=== PATIENT | female | born 1995 | race Caucasian/White ===

== ENCOUNTER 2017-01-28 13:16 | Outpatient (CLI) | payer BC | END 2017-01-28 16:15 | disposition home or self-care (01) | LOC: MW.OBCHECK 13:16 → MW.OB 13:17 → MW.OBCHECK 16:15 | PROVIDERS: ATTEND Obstetrics & Gynecology | DX: O47.1 False labor at or after 37 completed weeks of gestation (principal); Z3A.39 39 weeks gestation of pregnancy | CPT/HCPCS: 59025 ==

== ENCOUNTER 2017-01-28 19:19 | Inpatient (IN) | payer BC ==
[2017-01-28] MEDS ORDERED: Carboprost Tromethamine 250 MCG/1 ML Amp IM PRN (19:58)
[2017-01-28] MEDS ORDERED: Nalbuphine 10 MG/1 ML Vial IVPUSH PRN (19:58)
[2017-01-28] MEDS ORDERED: Misoprostol 200 MCG Tab PO PRN (19:58)
[2017-01-28] MEDS ORDERED: Methylergonovine 0.2 MG/1 ML Amp IM PRN (19:58)
[2017-01-28] MEDS ORDERED: Sodium Chloride 0.9% 2.5 ML Syringe FLUSH PRN (19:58)
[2017-01-28] MEDS ORDERED: Water For Irrigation,Sterile 1,000 ML Container IRR PRN (19:58)
[2017-01-28] MEDS ORDERED: Sodium Chloride 0.9% 10 ML Syringe FLUSH PRN (19:58)
[2017-01-28] MEDS ORDERED: Lidocaine 1% 50 ML MDV INJECT PRN (19:58)
[2017-01-28] MEDS ORDERED: Oxytocin/Lactated Ringers 30 UNIT/500 ML BAG IV SCH (20:00)
[2017-01-28] MEDS: Lactated Ringers 1,000 ML IV SCH ×3 (20:20→22:40)
[2017-01-28] MEDS: Butorphanol 1 MG/ML SDV IVPUSH PRN ×2 (20:25→21:56)
[2017-01-28] MEDS ORDERED: fentaNYL 100 MCG/2 ML SDV ONE (22:17)
[2017-01-28] MEDS ORDERED: Ropivacaine HCl/PF 100 ML ONE (22:18)
--- NOTE | 2017-01-28 22:54 | PCM.PREANE ---
Preanesthetic Assessment - Anesthesia/Transfusion/Family Hx Anesthesia History: Prior Anesthesia Without Reaction (Inguinal hernia repair as a baby & wisdom teeth) Family History of Anesthesia Reaction: No Intubation History: Unknown - Review of Systems General: No Symptoms Pulmonary: No Symptoms Cardiovascular: No Symptoms Gastrointestinal: No symptoms Neurological: No Symptoms Other: Reports: None - Physical Assessment NPO Status Date: 01/28/17 NPO Status Time: 22:53 (sips/chips) Blood Pressure: 124/82 Height: 5 ft 9.75 in Weight: 170 lb ASA Class: 1 Mental Status: Alert & Oriented x3 Airway Class: Mallampati = 2 Dentition: Reports: Normal Dentition Thyro-Mental Finger Breadths: 3 Mouth Opening Finger Breadths: 3 ROM/Head Extension: Full Lungs: Clear to auscultation, Normal respiratory effort Cardiovascular: Regular Rate, Regular Rhythm - Lab Values: Laboratory Last Values WBC 13.27 K/uL (4.0-11.0) H 01/28/17 20: RBC 4.59 M/uL (4.30-5.90) 01/28/17 20:17 Hgb 14.5 g/dL (12.0-16.0) 01/28/17 20:17 Hct 41.5 % (36.0-46.0) 01/28/17 20:17 MCV 90.4 fL (80.0-98.0) 01/28/17 20:17 MCH 31.6 pg (27.0-32.0) 01/28/17 20:17 MCHC 34.9 g/dL (31.0-37.0) 01/28/17 20:17 RDW Std Deviation 45.0 fl (28.0-62.0) 01/28/17 20:17 RDW Coeff of [place] 14 % (11.0-15.0) 01/28/17 20:17 Plt Count 231 K/uL (150-400) 01/28/17 20:17 MPV 10.20 fL (7.40-12.00) 01/28/17 20:17 Nucleated RBC % 0.0 /100WBC 01/28/17 20:17 Nucleated RBCs # 0 K/uL 01/28/17 20:17 Blood Type AB POSITIVE 01/28/17 20:45 Antibody Screen NEGATIVE 01/28/17 20:45 Cold Antibody Screen POSITIVE 01/28/17 20:45 - Allergies Allergies/Adverse Reactions: Allergies Allergy/AdvReac Type Severity Reaction Status Date / Time No Known Allergies Allergy Verified 01/06/14 13:04 - Blood Blood Available: No Product(s) Available: None - Anesthesia Plan Free Text/Narrative:: Labor Epidural - Acknowledgements Anesthesia Type Planned: Epidural Pt an Appropriate Candidate for the Planned Anesthesia: Yes Alternatives and Risks of Anesthesia Discussed w Pt/Guardian: Yes Pt/Guardian Understands and Agrees with Anesthesia Plan: Yes PreAnesthesia Questionnaire - Past Surgical History HEENT Surgical History: Reports: Oral Surgery, Other (See Below) Other HEENT Surgeries/Procedures: [place] tooth extraction GI Surgical History: Reports: Hernia, Inguinal, Other (See Below) Other GI Surgeries/Procedures: Left inguinal hernia repair - SUBSTANCE USE Smoking Status *Q: Never Smoker Days Per Week of Alcohol Use: 0 Recreational Drug Use History: No - HOME MEDS Home Medications: Home Meds . [No Known Home Meds] 01/06/14 [History] - CURRENT (IN HOUSE) MEDS Current Meds: Current Medications Butorphanol Tartrate (Stadol) 1 mg IVPUSH Q1H PRN PRN Reason: Pain Last Admin: 01/28/17 21:56 Dose: 1 mg Carboprost Tromethamine (Hemabate Ds) 250 mcg IM ASDIRECTED PRN PRN Reason: Post Hemorrhage Lactated Ringer's (Ringers, Lactated) 1,000 mls @ 150 mls/hr IV ASDIRECTED VIVIENNE Last Admin: 01/28/17 22:40 Dose: 150 mls/hr Lidocaine HCl (Xylocaine 1%) 50 ml INJECT .ONCE PRN PRN Reason: Laceration repair Methylergonovine Maleate (Methergine) 0.2 mg IM ASDIRECTED PRN PRN Reason: Post Hemorrhage Misoprostol (Cytotec) 200 mcg PO .ONCE PRN PRN Reason: Post Hemorrhage Sodium Chloride (Saline Flush) 10 ml FLUSH ASDIRECTED PRN PRN Reason: Keep Vein Open Sodium Chloride (Saline Flush) 2.5 ml FLUSH ASDIRECTED PRN PRN Reason: Keep Vein Open Sterile Water (Sterile Water For Irrigation) 1,000 ml IRR ASDIRECTED PRN PRN Reason: delivery Discontinued Medications Fentanyl (Sublimaze) Confirm Administered Dose 100 mcg .ROUTE .STK-MED ONE Stop: 01/28/17 22:18 Oxytocin/Lactated Ringer's (Pitocin In Lr 30 Units/500 Ml) 30 unit in 500 mls @ 999 mls/hr IV TITRATE VIVIENNE; 999 MUNITS/MIN PRN Reason: Protocol Stop: 01/28/17 20:31 Ropivacaine (Naropin 0.2%) Confirm Administered Dose 100 mls @ as directed .ROUTE .STK-MED ONE Stop: 01/28/17 22:19 Nalbuphine HCl (Nubain) 10 mg IVPUSH Q1H PRN PRN Reason: Pain (severe 7-10) Stop: 01/28/17 21:59
[2017-01-29] MEDS ORDERED: Oxytocin/Lactated Ringers 30 UNIT/500 ML BAG ONE (01:33)
[2017-01-29] MEDS ORDERED: Oxytocin/Lactated Ringers 30 UNIT/500 ML BAG IV SCH (02:11)
[2017-01-29] MEDS ORDERED: Bisacodyl 10 MG Supp RECTAL PRN (04:07)
[2017-01-29] MEDS ORDERED: Witch Hazel Medicated Pads 40/Jar TOP PRN (04:07)
[2017-01-29] MEDS ORDERED: oxyCODONE 5 MG Tab PO PRN (04:07)
[2017-01-29] MEDS ORDERED: Acetaminophen 500 MG Tab PO PRN (04:07)
[2017-01-29] MEDS ORDERED: Benzocaine/Menthol 20%-0.5% Spray 78 GM Cannister TOP PRN (04:07)
[2017-01-29] MEDS ORDERED: Lanolin 100% Cream 7 GM Tube TOP PRN (04:07)
[2017-01-29] MEDS ORDERED: Ibuprofen 400 MG Tab PO PRN (04:07)
--- NOTE | 2017-01-29 04:45 | OR ---
SURGEON: Rochelle Thompson M.D. DATE OF PROCEDURE: 01/29/2017 PREOPERATIVE DIAGNOSES: 1. 39 and 3 weeks intrauterine . 2. Active labor. POSTOPERATIVE DIAGNOSES: 1. 39 and 3 weeks intrauterine . 2. Active labor. PROCEDURE: 1. Spontaneous vaginal delivery. 2. Second-degree midline laceration repair. ESTIMATED BLOOD LOSS: 300 mL. ANESTHESIA: Epidural. COMPLICATIONS: None. FINDINGS: Viable female, Apgars 8 at 1 minute, 9 at 5 minutes. Weight of 2910 g. Spontaneous delivery, intact placenta, 3-vessel cord. DISPOSITION: Infant to nursery, mom in LDRP. PROCEDURE DETAILS: Carlos is a 21-year-old, G1, P0, at 39 and 2 weeks gestational age upon her arrival on the evening of 01/28/2017. She was having regular contractions throughout the day and then at approximately 7:00 p.m. had spontaneous rupture of membranes with clear fluid. On exam, she was found to be 1 cm, 70% effaced, -3 station. Therefore, she was admitted. Routine labs were drawn. She is group B beta strep negative. heart tones in the 120s to 130s with variability. The patient became increasingly uncomfortable with ailyn every 2 to 3 minutes and shortly before 10:00 p.m. was found to be 3 cm dilated, 80% effaced, -2 station. She was requesting regional anesthesia in the form of epidural. Within the next 30 minutes, she had already progressed to 4 cm, 90% effaced, and -1 station. She underwent regional anesthesia in the form of epidural, became much more comfortable and continued to progress nicely to complete 100% effaced, +2 station with heart tones in the 130s to 140s with variability. Shortly after 1:00 a.m., she was found to be complete. Therefore, began pushing efforts. She pushed readily for approximately an hour and 45 minutes to a +4 station. I was called for delivery. Upon my arrival, the patient was placed in modified dorsal lithotomy position. She was prepped and draped in the usual aseptic manner. With the next push, was able to deliver 's head atraumatically spontaneously followed by anterior shoulder, posterior shoulder, main body without difficulty. The 's oropharynx and nares were bulb suctioned. Cord was clamped x2 and cut. was handed off to her mother with attending nursing staff at her side. Cord arterial, cord venous, cord blood sampling was obtained. Light suprapubic pressure was applied while the placenta was delivered spontaneously intact. Vigorous fundal uterine massage was then applied while 30 units of Pitocin was delivered in 500 mL IV fluid. Upon inspection of the cervix, vaginal sidewalls, and perineum; there was found to be a second-degree midline laceration. The deeper tissues of the lacerations were repaired using 3-0 Vicryl with [id number] sutures x3. The remainder of the laceration was repaired in usual fashion using 3-0 Vicryl. Hemostasis remained evident. Uterus remained firm. Sponge count and needle count was correct. The patient remained in LDRP. in nursery. RICO MURO /[id number]
[2017-01-29] MEDS: Ibuprofen 800 MG Tab PO PRN ×2 (08:25→15:26)
[2017-01-29] MEDS: Docusate Sodium 100 MG Cap PO PRN ×2 (08:25→20:55)
[2017-01-29] MEDS: Acetaminophen 500 MG Tab PO PRN ×2 (12:23→20:56)
--- NOTE | 2017-01-29 18:50 | PCM48HPAN ---
Post Anesthesia Note - EVALUATION WITHIN 48HRS OF ANESTHETIC Vital Signs in Normal Range: Yes Patient Participated in Evaluation: Yes Respiratory Function Stable: Yes Airway Patent: Yes Cardiovascular Function Stable: Yes Hydration Status Stable: Yes Pain Control Satisfactory: Yes Nausea and Vomiting Control Satisfactory: Yes Mental Status Recovered: Yes - COMMENTS/OBSERVATIONS Free Text/Narrative:: Pt reports full return of sensation and motor movement to lower extremities. Denies problems with epidural. "It was a life saver, Martita did great!"
[2017-01-30] MEDS: Ibuprofen 800 MG Tab PO PRN (02:46)
[2017-01-30 04:45] VITALS: BP 108/61
[2017-01-30] MEDS: Docusate Sodium 100 MG Cap PO PRN (08:02)
[2017-01-30] MEDS: Acetaminophen 500 MG Tab PO PRN (08:03)
--- NOTE | 2017-01-30 08:05 | PCM.PNPP ---
- General Info Date of Service: 01/30/17 Functional Status: Reports: pain controlled, tolerating diet, ambulating, urinating - Review of Systems General: Denies: Fever, Weakness, Fatigue Pulmonary: Denies: shortness of breath, pleuritic chest pain, cough Cardiovascular: Denies: Chest Pain, Palpitations, Dyspnea on Exertion Gastrointestinal: Denies: Abdominal pain Psychiatric: Reports: no symptoms - General Info Date of Service: 01/30/17 - Patient Data Vital Signs - most recent: Last Vital Signs Temp 36.9 C 01/30/17 04:00 Pulse 76 01/30/17 04:00 Resp 18 01/30/17 04:00 BP 108/61 01/30/17 04:00 Pulse Ox 96 01/30/17 04:00 Weight - most recent: 77.111 kg Lab Results - last 24 hrs: Laboratory Results - last 24 hr 01/29/17 Range/Units 17:08 Hgb 11.7 L (12.0-16.0) g/dL Hct 34.5 L (36.0-46.0) % Med Orders - Current: Current Medications Acetaminophen (Tylenol Extra Strength) 500 mg PO Q4H PRN PRN Reason: Pain Acetaminophen (Tylenol Extra Strength) 1,000 mg PO Q4H PRN PRN Reason: Pain Last Admin: 01/29/17 20:56 Dose: 1,000 mg Benzocaine/Menthol (Dermoplast Pain Relief 20%-0.5% [place]) 78 gm TOP ASDIRECTED PRN PRN Reason: Perineal Comfort Measure Last Admin: 01/29/17 05:55 Dose: 1 canister Bisacodyl (Dulcolax) 10 mg RECTAL .ONCE PRN PRN Reason: Constipation Carboprost Tromethamine (Hemabate Ds) 250 mcg IM ASDIRECTED PRN PRN Reason: Post Hemorrhage Docusate Sodium (Colace) 100 mg PO BID PRN PRN Reason: Constipation Last Admin: 01/29/17 20:55 Dose: 100 mg Emollient Ointment (Lansinoh Hpa) 0 gm TOP ASDIRECTED PRN PRN Reason: Sore Nipples Last Admin: 01/29/17 05:54 Dose: 1 tube Lactated Ringer's (Ringers, Lactated) 1,000 mls @ 150 mls/hr IV ASDIRECTED VIVIENNE Last Admin: 01/28/17 22:40 Dose: 150 mls/hr Oxytocin/Lactated Ringer's (Pitocin In Lr 30 Units/500 Ml) 30 unit in 500 mls @ 2 mls/hr IV TITRATE VIVIENNE; 2 MUNITS/MIN PRN Reason: Protocol Last Titration: 01/29/17 04:12 Dose: Infused Ibuprofen (Motrin) 400 mg PO Q4H PRN PRN Reason: Pain Ibuprofen (Motrin) 800 mg PO Q6H PRN PRN Reason: Pain Last Admin: 01/30/17 02:46 Dose: 800 mg Methylergonovine Maleate (Methergine) 0.2 mg IM ASDIRECTED PRN PRN Reason: Post Hemorrhage Oxycodone HCl (Oxycodone) 5 mg PO Q2H PRN PRN Reason: Pain Sodium Chloride (Saline Flush) 2.5 ml FLUSH ASDIRECTED PRN PRN Reason: Keep Vein Open Witch Vira (Tucks) 1 pad TOP ASDIRECTED PRN PRN Reason: comfort care Last Admin: 01/29/17 05:54 Dose: 1 tub Discontinued Medications Butorphanol Tartrate (Stadol) 1 mg IVPUSH Q1H PRN PRN Reason: Pain Last Admin: 01/28/17 21:56 Dose: 1 mg Fentanyl (Sublimaze) Confirm Administered Dose 100 mcg .ROUTE .STK-MED ONE Stop: 01/28/17 22:18 Last Admin: 01/29/17 09:35 Dose: Not Given Oxytocin/Lactated Ringer's (Pitocin In Lr 30 Units/500 Ml) 30 unit in 500 mls @ 999 mls/hr IV TITRATE VIVIENNE; 999 MUNITS/MIN PRN Reason: Protocol Stop: 01/28/17 20:31 Last Admin: 01/29/17 09:35 Dose: Not Given Ropivacaine (Naropin 0.2%) Confirm Administered Dose 100 mls @ as directed .ROUTE .STK-MED ONE Stop: 01/28/17 22:19 Last Admin: 01/29/17 09:35 Dose: Not Given Oxytocin/Lactated Ringer's (Pitocin In Lr 30 Units/500 Ml) Confirm Administered Dose 30 unit in 500 mls @ as directed .ROUTE .STK-MED ONE Stop: 01/29/17 01:34 Lidocaine HCl (Xylocaine 1%) 50 ml INJECT .ONCE PRN PRN Reason: Laceration repair Misoprostol (Cytotec) 200 mcg PO .ONCE PRN PRN Reason: Post Hemorrhage Nalbuphine HCl (Nubain) 10 mg IVPUSH Q1H PRN PRN Reason: Pain (severe 7-10) Stop: 01/28/17 21:59 Sodium Chloride (Saline Flush) 10 ml FLUSH ASDIRECTED PRN PRN Reason: Keep Vein Open Sterile Water (Sterile Water For Irrigation) 1,000 ml IRR ASDIRECTED PRN PRN Reason: delivery Last Admin: 01/29/17 03:30 Dose: 1,000 ml - Interaction Disposition, : [place] in Room with Family Infant Interaction: Holding Feeding: Attempted ; Nursed Fair/Poor Support Person: - Recovery Exam Fundal Tone: Firm Fundal Level: 2 Fingerbreadths Below Umbilicus Fundal Placement: Midline Lochia Amount: Small Lochia Color: Rubra/Red Perineum Description: Intact, Minimal Bruising/Swelling Episiotomy/Laceration: Approximated Bladder Status: Voiding Urinary Elimination: Voided - Exam Lungs: Clear to auscultation, Normal respiratory effort Cardiovascular: Regular Rate Abdomen: bowel sounds present, soft, no tenderness, no distension Extremities: no edema Psy/Mental Status: alert, normal affect, normal mood - Problem List & Annotations (1) Vaginal delivery SNOMED Code(s): 816379242 Code(s): O80 - ENCOUNTER FOR FULL-TERM UNCOMPLICATED DELIVERY Status: Acute Current Visit: Yes - Problem List Review Problem List Initiated/Reviewed/Updated: Yes - Assessment Assessment:: PPD #1 from . Minimal pain and Lochia. Breast feeding well. Discharge home today. - Plan Plan:: Discharge home today. Nothing in the vagina for 6 weeks. Continue PNV while breast feeding. Rx for Oxycodone to have to use as needed for pain. Instructed patient to call if she develops fever greater than 101 or bleeding through a large pad an hour. F/U with [facility] in 6 weeks.
== END 2017-01-30 12:55 | disposition home or self-care (01) | DRG 560 ==
LOC: MW.OBCHECK 19:19 → MW.OB 19:20 → MW.OBCHECK 19:49 → OBSVTOIN 01-29 03:33 → MW.OB 01-29 09:32
PROVIDERS: ADMIT Obstetrics & Gynecology; ATTEND Obstetrics & Gynecology
PROC: 10E0XZZ Delivery of Products of Conception, External Approach (ICD-10-PCS; principal; 2017-01-29)
PROC: 0KQM0ZZ Repair Perineum Muscle, Open Approach (ICD-10-PCS; 2017-01-29)
PROC: 3E0R3CZ (ICD-10-PCS; 2017-01-29)
DX: O70.1 Second degree perineal laceration during delivery (principal); Z3A.39 39 weeks gestation of pregnancy; Z37.0 Single live birth
CPT/HCPCS: 36415; 59025; 85014; 85018; 85027; 86156; 86850; 86900; 86901; A9270-GY; J0595; J7120

== ENCOUNTER 2020-12-05 10:16 | Inpatient (IN) | payer BC ==
[2020-12-05] MEDS: Lactated Ringers 1,000 ML IV SCH ×3 (14:41→16:29)
[2020-12-05] MEDS ORDERED: Nalbuphine 10 MG/1 ML Vial IVPUSH PRN (14:45)
[2020-12-05] MEDS ORDERED: Butorphanol 1 MG/ML SDV IVPUSH PRN (14:45)
[2020-12-05] MEDS ORDERED: Sodium Chloride 0.9% 10 ML SDV IV PRN (14:45)
[2020-12-05] MEDS ORDERED: Tranexamic Acid 1,000 MG in Sodium Chloride 0.9% 100 ML IV PRN (14:45)
[2020-12-05] MEDS ORDERED: Misoprostol 200 MCG Tab PO PRN (14:45)
[2020-12-05] MEDS ORDERED: Lidocaine 1% 50 ML MDV INJECT PRN (14:45)
[2020-12-05] MEDS ORDERED: Methylergonovine 0.2 MG/1 ML Amp IM PRN (14:45)
[2020-12-05] MEDS ORDERED: Carboprost Tromethamine 250 MCG/1 ML Amp IM PRN (14:45)
[2020-12-05] MEDS ORDERED: Sodium Chloride 0.9% 2.5 ML Syringe FLUSH PRN (14:45)
[2020-12-05] MEDS ORDERED: Sodium Chloride 0.9% 10 ML Syringe FLUSH PRN (14:45)
[2020-12-05] MEDS ORDERED: Water For Irrigation,Sterile 1,000 ML Container IRR PRN (14:45)
[2020-12-05] MEDS ORDERED: Ropivacaine HCl/PF 100 ML ONE (15:21)
[2020-12-05] MEDS ORDERED: fentaNYL 100 MCG/2 ML SDV ONE (15:21)
--- NOTE | 2020-12-05 15:40 | PCM.PREANE ---
Preanesthetic Assessment - Anesthesia/Transfusion/Family Hx Anesthesia History: Prior Anesthesia Without Reaction Family History of Anesthesia Reaction: No Transfusion History: No Prior Transfusion(s) Intubation History: Unknown - Physical Assessment NPO Status Date: 12/05/20 NPO Status Time: 10:00 Height: 1.78 m Weight: 75.296 kg ASA Class: 2 - Lab Values: Laboratory Last Values WBC 12.14 K/uL (4.0-11.0) H 12/05/20 14:39 RBC 4.25 M/uL (4.30-5.90) L 12/05/20 14:39 Hgb 13.7 g/dL (12.0-16.0) 12/05/20 14:39 Hct 39.9 % (36.0-46.0) 12/05/20 14:39 MCV 93.9 fL (80.0-98.0) 12/05/20 14:39 MCH 32.2 pg (27.0-32.0) H 12/05/20 14:39 MCHC 34.3 g/dL (31.0-37.0) 12/05/20 14:39 RDW Std Deviation 46.6 fl (28.0-62.0) 12/05/20 14:39 RDW Coeff of [place] 14 % (11.0-15.0) 12/05/20 14:39 Plt Count 206 K/uL (150-400) 12/05/20 14:39 MPV 10.20 fL (7.40-12.00) 12/05/20 14:39 Nucleated RBC % 0.0 /100WBC 12/05/20 14:39 Nucleated RBCs # 0 K/uL 12/05/20 14:39 SARS-CoV-2 RNA (VENUS) NEGATIVE (NEGATIVE) 12/05/20 13:40 - Allergies Allergies/Adverse Reactions: Allergies Allergy/AdvReac Type Severity Reaction Status Date / Time No Known Allergies Allergy Verified 12/05/20 10:36 - Acknowledgements Anesthesia Type Planned: Epidural Pt an Appropriate Candidate for the Planned Anesthesia: Yes Alternatives and Risks of Anesthesia Discussed w Pt/Guardian: Yes Pt/Guardian Understands and Agrees with Anesthesia Plan: Yes PreAnesthesia Questionnaire HEENT History: Reports: Impaired Vision Gastrointestinal History: Reports: None Genitourinary History: Reports: None 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: - Past Surgical History HEENT Surgical History: Reports: Oral Surgery, Other (See Below) Other HEENT Surgeries/Procedures: [place] tooth extraction GI Surgical History: Reports: Hernia, Inguinal, Other (See Below) Other GI Surgeries/Procedures: Left inguinal hernia repair Female Surgical History: Reports: Breast Biopsy Other Female Surgeries/Procedures: left breast biopsy - SUBSTANCE USE Tobacco Use Status *Q: Never Tobacco User Recreational Drug Use History: No - HOME MEDS Home Medications: Home Meds Calcium Carbonate [Tums Extra Strength] 1 - 2 tab CHEW ASDIRECTED PRN 12/05/20 [History] Pnv No.95/Ferrous Fum/Folic AC [ Tablet] 1 tab PO DAILY 12/05/20 [History] - CURRENT (IN HOUSE) MEDS Current Meds: Current Medications Butorphanol Tartrate (Butorphanol 1 Mg/Ml Sdv) 1 mg IVPUSH Q1H PRN PRN Reason: Pain Carboprost Tromethamine (Carboprost Tromethamine 250 Mcg/1 Ml Amp) 250 mcg IM ASDIRECTED PRN PRN Reason: Post Hemorrhage Lactated Ringer's (Ringers, Lactated) 1,000 mls @ 150 mls/hr IV ASDIRECTED VIVIENNE Last Admin: 12/05/20 15:17 Dose: 999 mls/hr Documented by: Oxytocin/Sodium Chloride (Oxytocin 30 Unit/500 Ml-Ns) 30 unit in 500 mls @ 999 mls/hr IV TITRATE VIVIENNE Tranexamic Acid 1,000 mg/ (Sodium Chloride) 110 mls @ 660 mls/hr IV ONETIME PRN PRN Reason: Bleeding Lidocaine HCl (Lidocaine 1% 50 Ml Mdv) 50 ml INJECT ONETIME PRN PRN Reason: Laceration repair Methylergonovine Maleate (Methylergonovine 0.2 Mg/1 Ml Amp) 0.2 mg IM ASDIRECTED PRN PRN Reason: Post Hemorrhage Misoprostol (Misoprostol 200 Mcg Tab) 200 mcg PO ONETIME PRN PRN Reason: Post Hemorrhage Nalbuphine HCl (Nalbuphine 10 Mg/1 Ml Vial) 10 mg IVPUSH Q1H PRN PRN Reason: Pain (severe 7-10) Sodium Chloride (Sodium Chloride 0.9% 10 Ml Syringe) 10 ml FLUSH ASDIRECTED PRN PRN Reason: Keep Vein Open Sodium Chloride (Sodium Chloride 0.9% 2.5 Ml Syringe) 2.5 ml FLUSH ASDIRECTED PRN PRN Reason: Keep Vein Open Sodium Chloride (Sodium Chloride 0.9% 10 Ml Sdv) 10 ml IV ASDIRECTED PRN PRN Reason: IV Use Sterile Water (Water For Irrigation,Sterile 1,000 Ml Container) 1,000 ml IRR ASDIRECTED PRN PRN Reason: delivery Discontinued Medications Fentanyl (Fentanyl 100 Mcg/2 Ml Sdv) Confirm Administered Dose 100 mcg .ROUTE .STK-MED ONE Stop: 12/05/20 15:22 Ropivacaine (Naropin 0.2%) Confirm Administered Dose 100 mls @ as directed .ROUTE .STK-MED ONE Stop: 12/05/20 15:22
--- NOTE | 2020-12-05 15:43 | PCM.PRNOTE ---
- Free Text/Narrative Note: Anes NOte Patient requests epidural for L&D. Sitting position. Level L3-L4 midline approach. Sterile technique. Chloraprep scrub to lumbar area. Steril fenestrated drape applied. Epidural space easily achieved using BOB technique. BOB at 3 cm. Cath threaded 5 cm with ease. Cath secured a t skin using sterile clear adhesive dressing. 17919 Test 3 cc 1.5 % lido with epi negative. 1536 Load 10 cc 0.2% ropiviciane with 1 mcg cc fentanyl in slow divided doses. 1543 Pump started with 90 cc same solution. Rate is 8 cc hr wiht 6 cc q 20 min prn bolus. Soraya well. Time with patient [phone] Kelby Chino CRNA
[2020-12-05] MEDS: Oxytocin/0.9 % Sodium Chloride 30 UNIT/500 ML BAG IV SCH (17:49)
[2020-12-05] MEDS ORDERED: Bisacodyl 10 MG Supp RECTAL PRN (18:37)
[2020-12-05] MEDS ORDERED: Lanolin 100% Cream 7 GM Tube TOP PRN (18:37)
[2020-12-05] MEDS ORDERED: Witch Hazel Medicated Pads 40/Jar TOP PRN (18:37)
[2020-12-05] MEDS ORDERED: oxyCODONE 5 MG Tab PO PRN (18:37)
[2020-12-05] MEDS ORDERED: Acetaminophen 500 MG Tab PO PRN (18:37)
[2020-12-05] MEDS ORDERED: Ibuprofen 400 MG Tab PO PRN (18:37)
[2020-12-05] MEDS ORDERED: Benzocaine/Menthol 20%-0.5% Spray 78 GM Cannister TOP PRN (18:37)
--- NOTE | 2020-12-05 18:44 | PCM.DEL ---
L & D Note - General Info Date of Service: 12/05/20 - Delivery Note Labor: Spontaneous Delivery Outcome: Livebirth Presentation: Left Occiput Anterior (HOWIE) Nuchal Cord: Present (also around the body ) Anesthesia Type: Epidural Amniotic Fluid Description: Clear Episiotomy Type: None Laceration: 1st Degree Suture type: Other (monocryl ) Suture size: 3-0 Placenta: Intact (Noted to have whitish collection around placenta bed ) Cord: 3 Vessels Estimated Blood Loss: 300 Resuscitation Needed: Yes : Suctioned, Bulb Syringe, Stimulated, Warmed Score 1 min: 8 Score 5 min: 9 Second Stage Interventions: Reports: Pushing Effectively Delivery Comments (Free Text/Narrative):: Live female delivered at 1748, 8/9 weight 2730g - General Info Date of Service: 12/05/20 - Patient Data Weight - Most Recent: 75.296 kg Lab Results Last 24 Hours: Laboratory Results - last 24 hr 12/05/20 12/05/20 12/05/20 Range/Units 13:40 14:39 14:39 WBC 12.14 H (4.0-11.0) K/uL RBC 4.25 L (4.30-5.90) M/uL Hgb 13.7 (12.0-16.0) g/dL Hct 39.9 (36.0-46.0) % MCV 93.9 (80.0-98.0) fL MCH 32.2 H (27.0-32.0) pg MCHC 34.3 (31.0-37.0) g/dL RDW Std Deviation 46.6 (28.0-62.0) fl RDW Coeff of [place] 14 (11.0-15.0) % Plt Count 206 (150-400) K/uL MPV 10.20 (7.40-12.00) fL Nucleated RBC % 0.0 /100WBC Nucleated RBCs # 0 K/uL SARS-CoV-2 RNA (VENUS) NEGATIVE (NEGATIVE) Blood Type AB POSITIVE Antibody Screen NEGATIVE Med Orders - Current: Current Medications Acetaminophen (Acetaminophen 500 Mg Tab) 500 mg PO Q4H PRN PRN Reason: Pain Acetaminophen (Acetaminophen 500 Mg Tab) 1,000 mg PO Q4H PRN PRN Reason: Pain Benzocaine/Menthol (Benzocaine/Menthol 20%-0.5% [place] 78 Gm Cannister) 78 gm TOP ASDIRECTED PRN PRN Reason: Perineal Comfort Measure Bisacodyl (Bisacodyl 10 Mg Supp) 10 mg RECTAL ONETIME PRN PRN Reason: Constipation Butorphanol Tartrate (Butorphanol 1 Mg/Ml Sdv) 1 mg IVPUSH Q1H PRN PRN Reason: Pain Carboprost Tromethamine (Carboprost Tromethamine 250 Mcg/1 Ml Amp) 250 mcg IM ASDIRECTED PRN PRN Reason: Post Hemorrhage Docusate Sodium (Docusate Sodium 100 Mg Cap) 100 mg PO BID PRN PRN Reason: Constipation Emollient Ointment (Lanolin 100% Cream 7 Gm Tube) 0 gm TOP ASDIRECTED PRN PRN Reason: Sore Nipples Lactated Ringer's (Ringers, Lactated) 1,000 mls @ 150 mls/hr IV ASDIRECTED [facility] Last Admin: 12/05/20 16:29 Dose: 150 mls/hr Documented by: Oxytocin/Sodium Chloride (Oxytocin 30 Unit/500 Ml-Ns) 30 unit in 500 mls @ 999 mls/hr IV TITRATE [facility] Last Admin: 12/05/20 17:49 Dose: 999 mls/hr Documented by: Tranexamic Acid 1,000 mg/ (Sodium Chloride) 110 mls @ 660 mls/hr IV ONETIME PRN PRN Reason: Bleeding Ibuprofen (Ibuprofen 400 Mg Tab) 400 mg PO Q4H PRN PRN Reason: Pain Ibuprofen (Ibuprofen 800 Mg Tab) 800 mg PO Q6H PRN PRN Reason: Pain Lidocaine HCl (Lidocaine 1% 50 Ml Mdv) 50 ml INJECT ONETIME PRN PRN Reason: Laceration repair Methylergonovine Maleate (Methylergonovine 0.2 Mg/1 Ml Amp) 0.2 mg IM ASDIRECTED PRN PRN Reason: Post Hemorrhage Misoprostol (Misoprostol 200 Mcg Tab) 200 mcg PO ONETIME PRN PRN Reason: Post Hemorrhage Nalbuphine HCl (Nalbuphine 10 Mg/1 Ml Vial) 10 mg IVPUSH Q1H PRN PRN Reason: Pain (severe 7-10) Oxycodone HCl (Oxycodone 5 Mg Tab) 5 mg PO Q2H PRN PRN Reason: Pain Sodium Chloride (Sodium Chloride 0.9% 10 Ml Syringe) 10 ml FLUSH ASDIRECTED PRN PRN Reason: Keep Vein Open Sodium Chloride (Sodium Chloride 0.9% 2.5 Ml Syringe) 2.5 ml FLUSH ASDIRECTED PRN PRN Reason: Keep Vein Open Sodium Chloride (Sodium Chloride 0.9% 10 Ml Sdv) 10 ml IV ASDIRECTED PRN PRN Reason: IV Use Sterile Water (Water For Irrigation,Sterile 1,000 Ml Container) 1,000 ml IRR ASDIRECTED PRN PRN Reason: delivery Witch Vira (Witch Vira Medicated Pads 40/Jar) 1 pad TOP ASDIRECTED PRN PRN Reason: comfort care Discontinued Medications Fentanyl (Fentanyl 100 Mcg/2 Ml Sdv) Confirm Administered Dose 100 mcg .ROUTE .STK-MED ONE Stop: 12/05/20 15:22 Last Admin: 12/05/20 16:39 Dose: Not Given Documented by: Ropivacaine (Naropin 0.2%) Confirm Administered Dose 100 mls @ as directed .ROUTE .STK-MED ONE Stop: 12/05/20 15:22 Last Admin: 12/05/20 16:39 Dose: Not Given Documented by: - Problem List & Annotations (1) Vaginal delivery SNOMED Code(s): 373104753 Code(s): O80 - ENCOUNTER FOR FULL-TERM UNCOMPLICATED DELIVERY Status: Acute Current Visit: No - Problem List Review Problem List Initiated/Reviewed/Updated: No - My Orders Last 24 Hours: My Active Orders 12/05/20 10:11 Up ad Yissel [RC] ASDIRECTED Vaginal Exam [RC] Click to Edit Vital Signs [RC] PER UNIT ROUTINE 12/05/20 14:39 RPR (SYPHILIS SERO) W/ RFLX [REF] Routine 12/05/20 14:45 Patient Status [ADT] Routine May Shower [RC] ASDIRECTED Notify Provider [RC] PRN Butorphanol [Stadol] 1 mg IVPUSH Q1H PRN Carboprost Tromethamine [Hemabate DS] 250 mcg IM ASDIRECTED PRN Lactated Ringers [Ringers, Lactated] 1,000 ml IV ASDIRECTED Lidocaine 1% [Xylocaine 1%] 50 ml INJECT ONETIME PRN Methylergonovine [Methergine] 0.2 mg IM ASDIRECTED PRN Nalbuphine [Nubain] 10 mg IVPUSH Q1H PRN Oxytocin/0.9 % Sodium Chloride [Oxytocin 30 Unit/500 ML-NS] 30 unit in 500 ml IV TITRATE Sodium Chloride 0.9% [Normal Saline] 10 ml IV ASDIRECTED PRN Sodium Chloride 0.9% [Saline Flush] 10 ml FLUSH ASDIRECTED PRN Sodium Chloride 0.9% [Saline Flush] 2.5 ml FLUSH ASDIRECTED PRN Tranexamic Acid [Cyklokapron] 1,000 mg Sodium Chloride 0.9% [Normal Saline] 100 ml IV ONETIME Water For Irrigation,Sterile [Sterile Water for Irrigation] 1,000 ml IRR ASDIRECTED PRN miSOPROStoL [Cytotec] 200 mcg PO ONETIME PRN Peripheral IV Insertion Adult [OM.PC] Routine 12/05/20 18:37 Patient Status [ADT] Routine May Shower [RC] ASDIRECTED Up ad Yissel [RC] ASDIRECTED Vital Signs [RC] PER UNIT ROUTINE Acetaminophen [Tylenol Extra Strength] 1,000 mg PO Q4H PRN Acetaminophen [Tylenol Extra Strength] 500 mg PO Q4H PRN Benzocaine/Menthol [Dermoplast Pain Relief 20%-0.5% [place]] 78 gm TOP ASDIRECTED PRN Docusate Sodium [Colace] 100 mg PO BID PRN Ibuprofen [Motrin] 400 mg PO Q4H PRN Ibuprofen [Motrin] 800 mg PO Q6H PRN Lanolin [Lansinoh HPA] See Dose Instructions TOP ASDIRECTED PRN bisacodyL [Dulcolax] 10 mg RECTAL ONETIME PRN oxyCODONE 5 mg PO Q2H PRN witch Vira [Tucks] 1 pad TOP ASDIRECTED PRN Assess Lochia [WOMSER] Per Unit Routine Assess Uterine Involution [WOMSER] Per Unit Routine Peripheral IV Discontinue [OM.PC] Routine Resuscitation Status Routine 12/06/20 05:11 HEMOGLOBIN/HEMATOCRIT,HH [HEME] Timed - Assessment Assessment:: 25yo @ 39w2d s/p Second degree laceration - repaired rubella immune
[2020-12-05] MEDS: Ibuprofen 800 MG Tab PO PRN (20:25)
[2020-12-05] MEDS: Docusate Sodium 100 MG Cap PO PRN (20:27)
[2020-12-05] MEDS: Acetaminophen 500 MG Tab PO PRN (23:19)
[2020-12-06] MEDS: Oxytocin/0.9 % Sodium Chloride 30 UNIT/500 ML BAG IV SCH (02:01)
[2020-12-06] MEDS: Ibuprofen 800 MG Tab PO PRN ×2 (02:34→12:59)
[2020-12-06] MEDS ORDERED: Simethicone 80 MG Tab.Chew PO ONE (06:40)
[2020-12-06] MEDS: Acetaminophen 500 MG Tab PO PRN ×2 (07:09→16:54)
--- NOTE | 2020-12-06 07:29 | PCM.POSTAN ---
POST ANESTHESIA ASSESSMENT - MENTAL STATUS Mental Status: Alert, Oriented - VITAL SIGNS Vital Signs: Last Vital Signs Temp 97.3 F 12/06/20 04:55 Pulse 81 12/06/20 04:55 Resp 16 12/06/20 04:55 BP 118/73 12/06/20 04:55 Pulse Ox 96 12/06/20 04:55 - RESPIRATORY Respiratory Status: Respiratory Rate WNL, Airway Patent, O2 Saturation Stable - CARDIOVASCULAR CV Status: Pulse Rate WNL, Blood Pressure Stable - GASTROINTESTINAL GI Status: No Symptoms - POST OP HYDRATION Hydration Status: Adequate & Stable
--- NOTE | 2020-12-06 08:40 | PCM.PNPP ---
- General Info Date of Service: 12/06/20 Functional Status: Reports: Pain Controlled, Tolerating Diet, Ambulating, Urinating - Review of Systems General: Reports: Fatigue. Denies: Fever, Weakness Pulmonary: Denies: Shortness of Breath Cardiovascular: Denies: Chest Pain, Palpitations, Lightheadedness Gastrointestinal: Denies: Abdominal Pain, Nausea, Vomiting Genitourinary: Denies: Flank Pain Musculoskeletal: Reports: No Symptoms Skin: Reports: No Symptoms Neurological: Reports: No Symptoms Psychiatric: Reports: No Symptoms - General Info Date of Service: 12/06/20 - Patient Data Vital Signs - Most Recent: Last Vital Signs Temp 36.4 C 12/06/20 08:09 Pulse 89 12/06/20 08:09 Resp 16 12/06/20 08:09 BP 109/73 12/06/20 08:09 Pulse Ox 94 L 12/06/20 08:09 Weight - Most Recent: 75.296 kg Lab Results - Last 24 Hours: Laboratory Results - last 24 hr 12/05/20 12/05/20 12/05/20 Range/Units 13:40 14:39 14:39 WBC 12.14 H (4.0-11.0) K/uL RBC 4.25 L (4.30-5.90) M/uL Hgb 13.7 (12.0-16.0) g/dL Hct 39.9 (36.0-46.0) % MCV 93.9 (80.0-98.0) fL MCH 32.2 H (27.0-32.0) pg MCHC 34.3 (31.0-37.0) g/dL RDW Std Deviation 46.6 (28.0-62.0) fl RDW Coeff of [place] 14 (11.0-15.0) % Plt Count 206 (150-400) K/uL MPV 10.20 (7.40-12.00) fL Nucleated RBC % 0.0 /100WBC Nucleated RBCs # 0 K/uL Cord ABG pH (7.18-7.38) Cord ABG Base Excess (-10--2) SARS-CoV-2 RNA (VENUS) NEGATIVE (NEGATIVE) Blood Type AB POSITIVE Antibody Screen NEGATIVE 12/05/20 12/06/20 Range/Units 17:48 05:25 WBC (4.0-11.0) K/uL RBC (4.30-5.90) M/uL Hgb 13.0 (12.0-16.0) g/dL Hct 38.3 (36.0-46.0) % MCV (80.0-98.0) fL MCH (27.0-32.0) pg MCHC (31.0-37.0) g/dL RDW Std Deviation (28.0-62.0) fl RDW Coeff of [place] (11.0-15.0) % Plt Count (150-400) K/uL MPV (7.40-12.00) fL Nucleated RBC % /100WBC Nucleated RBCs # K/uL Cord ABG pH 7.263 (7.18-7.38) Cord ABG Base Excess -5 (-10--2) SARS-CoV-2 RNA (VENUS) (NEGATIVE) Blood Type Antibody Screen Med Orders - Current: Current Medications Acetaminophen (Acetaminophen 500 Mg Tab) 500 mg PO Q4H PRN PRN Reason: Pain Acetaminophen (Acetaminophen 500 Mg Tab) 1,000 mg PO Q4H PRN PRN Reason: Pain Last Admin: 12/06/20 07:09 Dose: 1,000 mg Documented by: Benzocaine/Menthol (Benzocaine/Menthol 20%-0.5% [place] 78 Gm Cannister) 0 gm TOP ASDIRECTED PRN PRN Reason: Perineal Comfort Measure Bisacodyl (Bisacodyl 10 Mg Supp) 10 mg RECTAL ONETIME PRN PRN Reason: Constipation Butorphanol Tartrate (Butorphanol 1 Mg/Ml Sdv) 1 mg IVPUSH Q1H PRN PRN Reason: Pain Carboprost Tromethamine (Carboprost Tromethamine 250 Mcg/1 Ml Amp) 250 mcg IM ASDIRECTED PRN PRN Reason: Post Hemorrhage Docusate Sodium (Docusate Sodium 100 Mg Cap) 100 mg PO BID PRN PRN Reason: Constipation Last Admin: 12/05/20 20:27 Dose: 100 mg Documented by: Emollient Ointment (Lanolin 100% Cream 7 Gm Tube) 0 gm TOP ASDIRECTED PRN PRN Reason: Sore Nipples Lactated Ringer's (Ringers, Lactated) 1,000 mls @ 150 mls/hr IV ASDIRECTED VIVIENNE Last Admin: 12/05/20 16:29 Dose: 150 mls/hr Documented by: Oxytocin/Sodium Chloride (Oxytocin 30 Unit/500 Ml-Ns) 30 unit in 500 mls @ 999 mls/hr IV TITRATE [facility] Last Infusion: 12/06/20 02:01 Dose: 250 mls/hr Documented by: Tranexamic Acid 1,000 mg/ (Sodium Chloride) 110 mls @ 660 mls/hr IV ONETIME PRN PRN Reason: Bleeding Ibuprofen (Ibuprofen 400 Mg Tab) 400 mg PO Q4H PRN PRN Reason: Pain Ibuprofen (Ibuprofen 800 Mg Tab) 800 mg PO Q6H PRN PRN Reason: Pain Last Admin: 12/06/20 02:34 Dose: 800 mg Documented by: Lidocaine HCl (Lidocaine 1% 50 Ml Mdv) 50 ml INJECT ONETIME PRN PRN Reason: Laceration repair Methylergonovine Maleate (Methylergonovine 0.2 Mg/1 Ml Amp) 0.2 mg IM ASDIRECTED PRN PRN Reason: Post Hemorrhage Last Admin: 12/06/20 01:56 Dose: 0.2 mg Documented by: Misoprostol (Misoprostol 200 Mcg Tab) 200 mcg PO ONETIME PRN PRN Reason: Post Hemorrhage Nalbuphine HCl (Nalbuphine 10 Mg/1 Ml Vial) 10 mg IVPUSH Q1H PRN PRN Reason: Pain (severe 7-10) Oxycodone HCl (Oxycodone 5 Mg Tab) 5 mg PO Q2H PRN PRN Reason: Pain Sodium Chloride (Sodium Chloride 0.9% 10 Ml Syringe) 10 ml FLUSH ASDIRECTED PRN PRN Reason: Keep Vein Open Sodium Chloride (Sodium Chloride 0.9% 2.5 Ml Syringe) 2.5 ml FLUSH ASDIRECTED PRN PRN Reason: Keep Vein Open Sodium Chloride (Sodium Chloride 0.9% 10 Ml Sdv) 10 ml IV ASDIRECTED PRN PRN Reason: IV Use Sterile Water (Water For Irrigation,Sterile 1,000 Ml Container) 1,000 ml IRR ASDIRECTED PRN PRN Reason: delivery Witch Vira (Witch Vira Medicated Pads 40/Jar) 1 pad TOP ASDIRECTED PRN PRN Reason: comfort care Last Admin: 12/06/20 00:41 Dose: 1 pad Documented by: Discontinued Medications Fentanyl (Fentanyl 100 Mcg/2 Ml Sdv) Confirm Administered Dose 100 mcg .ROUTE .STK-MED ONE Stop: 12/05/20 15:22 Last Admin: 12/05/20 16:39 Dose: Not Given Documented by: Ropivacaine (Naropin 0.2%) Confirm Administered Dose 100 mls @ as directed .ROUTE .STK-MED ONE Stop: 12/05/20 15:22 Last Admin: 12/05/20 16:39 Dose: Not Given Documented by: Simethicone (Simethicone 80 Mg Tab.Chew) 160 mg PO ONETIME ONE Stop: 12/06/20 06:41 Last Admin: 12/06/20 07:10 Dose: 160 mg Documented by: - Interaction Support Person: - Exam General: Alert, Oriented Lungs: Normal Respiratory Effort Cardiovascular: Regular Rate, Regular Rhythm GI/Abdominal Exam: Normal Bowel Sounds, Soft Extremities: Pedal Edema (trace). No: Joshua's Sign Skin: Warm, Dry, Intact Neurological: No New Focal Deficit Psy/Mental Status: Alert, Normal Affect, Normal Mood - Problem List & Annotations (1) Vaginal delivery SNOMED Code(s): 332281588 Code(s): O80 - ENCOUNTER FOR FULL-TERM UNCOMPLICATED DELIVERY Status: Acute Current Visit: No - Problem List Review Problem List Initiated/Reviewed/Updated: Yes - My Orders Last 24 Hours: My Active Orders 12/06/20 Breakfast Regular Diet [DIET] 12/06/20 08:37 Ready for Discharge [RC] PER UNIT ROUTINE - Assessment Assessment:: PPD 1 status post - Plan Plan:: Doing well overall. VS and labs reassuring. Would like to go home later today. Discharge instructions reviewed. Follow up at [facility] 4 weeks. Discharge to home today.
--- NOTE | 2020-12-06 10:25 | OR ---
SURGEON: RADHA CHAPMAN DATE OF PROCEDURE: 12/05/2020 PREOPERATIVE DIAGNOSIS: A 25-year-old, G2, P1-0-0-1 at 39 weeks 2 days, admitted in active labor. POSTOPERATIVE DIAGNOSIS: A 25-year-old, G2, P1-0-0-1 at 39 weeks 2 days, admitted in active labor. PROCEDURES: 1. Normal spontaneous vaginal delivery. 2. Repair of first-degree vaginal laceration. ESTIMATED BLOOD LOSS: 300. ANESTHESIA: Epidural. NOTES AND FINDINGS: A live female delivered at 1748, score 8 and 9, weight is 2730 g. There was nuchal cord around the neck and also around the body, which was reduced. BRIEF HISTORY: About the patient, she is G2, P1-0-0-1, 39 weeks 2 days who came in complaining of contractions. She was noted to be about 3 cm. She made change to 4, then held, was admitted at this point. She was requesting epidural, which she received. The patient then had spontaneous rupture and then made rapid progress and became fully dilated. With the patient being fully dilated, she was encouraged to push. With good pushing effort, she delivered the head, subsequently delivered the anterior and posterior shoulder. There was cord noted around the neck and also around the body, which was reduced. was placed on maternal abdomen. The mouth and nose were bulb suctioned. Delayed cord clamping was observed. Cord blood gas was obtained arterial, and placenta was delivered by manual massage of the uterine fundus. The perineum was inspected and noted to have a first-degree laceration, which was repaired with 3- 0 Monocryl. The uterus was then massaged. The clot was evacuated, and the Pitocin was running already. The patient tolerated the procedure well. All instrument and pad counts were correct x2. MARGARITA / JINA /[id number]
[2020-12-06] MEDS: Docusate Sodium 100 MG Cap PO PRN (12:59)
[2020-12-06 19:46] VITALS: BP 106/70; PULSE 79
== END 2020-12-06 22:12 | disposition home or self-care (01) | DRG 560 ==
LOC: MW.OBCHECK 10:16 → MW.OB 10:18 → MW.OBCHECK 14:40 → MW.OB 14:45 → OBSVTOIN 18:37 → MW.OB 12-06 00:07
PROVIDERS: ADMIT Obstetrics & Gynecology; ATTEND Obstetrics & Gynecology
PROC: 10E0XZZ Delivery of Products of Conception, External Approach (ICD-10-PCS; principal; 2020-12-05)
PROC: 0HQ9XZZ Repair Perineum Skin, External Approach (ICD-10-PCS; 2020-12-05)
PROC: 3E0R3BZ Introduction of Anesthetic Agent into Spinal Canal, Percutaneous Approach (ICD-10-PCS; 2020-12-05)
PROC: 00HU33Z Insertion of Infusion Device into Spinal Canal, Percutaneous Approach (ICD-10-PCS; 2020-12-05)
DX: O70.0 First degree perineal laceration during delivery (principal); Z37.0 Single live birth; Z3A.39 39 weeks gestation of pregnancy; Z20.822 Contact with and (suspected) exposure to COVID-19
CPT/HCPCS: 01967; 36415; 51702; 59025; 59409; 82803; 85014; 85018; 85027; 86592; 86850; 86900; 86901; A9270-GY; J2210; J2590; J2795; J3010; J7120; U0002

== ENCOUNTER 2024-07-24 00:20 | Inpatient (IN) | payer BC ==
[2024-07-24] MEDS ORDERED: Misoprostol 200 MCG Tab VAG PRN (00:32)
[2024-07-24] MEDS ORDERED: Terbutaline 1 MG/ML SDV SUBCUT PRN (00:32)
[2024-07-24] MEDS ORDERED: Butorphanol 2 MG/ML SDV IVPUSH PRN (00:32)
[2024-07-24] MEDS ORDERED: Lidocaine 1% 50 ML MDV INJECT PRN (00:32)
[2024-07-24] MEDS ORDERED: Carboprost Tromethamine 250 MCG/1 mL Vial IM PRN (00:32)
[2024-07-24] MEDS ORDERED: Nalbuphine 10 MG/1 ML Vial IVPUSH PRN ×2 (00:32→03:42)
[2024-07-24] MEDS ORDERED: Ondansetron 4 MG/2 ML SDV IVPUSH PRN ×2 (00:32→03:42)
[2024-07-24] MEDS ORDERED: Water For Irrigation,Sterile 1,000 ML Container IRR PRN (00:32)
[2024-07-24] MEDS ORDERED: Sodium Chloride 0.9% 2.5 ML Syringe FLUSH PRN (00:32)
[2024-07-24] MEDS ORDERED: Sodium Chloride 0.9% 10 ML Syringe FLUSH PRN (00:32)
[2024-07-24] MEDS ORDERED: Sodium Chloride 0.9% 20 ML SDV IV PRN (00:32)
[2024-07-24] MEDS ORDERED: Acetaminophen 325 MG Tab PO PRN (00:32)
[2024-07-24] MEDS ORDERED: Methylergonovine 0.2 MG/1 ML Amp IM PRN (00:32)
[2024-07-24] MEDS ORDERED: Oxytocin/0.9 % Sodium Chloride 30 UNIT/500 ML BAG IV SCH ×2 (00:45)
[2024-07-24] MEDS: Lactated Ringers 1,000 ML IV SCH ×2 (00:45→04:30)
[2024-07-24 01:00] LABS: HEMATOCRIT 37.9 % (37.0-47.0); HEMOGLOBIN 13.4 g/dL (12.0-16.0); MEAN CORPUSCULAR HEMOGLOBIN 31.1 pg (28.0-32.0); MEAN CORPUSCULAR HGB CONC 35.4 g/dL (32.0-36.0); MEAN CORPUSCULAR VOLUME 87.9 fL (83.0-99.0); PLATELET COUNT,PLT 226 K/uL (150-400); RED BLOOD CELL COUNT 4.31 M/uL (4.10-5.30); WHITE BLOOD CELL COUNT,WBC 10.22 K/uL (3.9-11.3)
[2024-07-24] MEDS ORDERED: Phenylephrine HCl In 0.9% NaCl 1 MG/10 ML Syringe ONE ×3 (01:01→02:40)
[2024-07-24] MEDS ORDERED: Ropivacaine HCl/PF 200 ML ONE (01:01)
[2024-07-24] MEDS ORDERED: Bupivacaine 0.5% 10 ML SDV ONE ×2 (01:01→02:44)
[2024-07-24] MEDS: Ropivacaine HCl/PF 400 MG in Premix Bag 1 BAG EPIDUR SCH (01:15)
[2024-07-24] MEDS ORDERED: ePHEDrine 50 MG/ML SDV IVPUSH PRN ×2 (01:25→03:42)
[2024-07-24] MEDS ORDERED: Phenylephrine HCl In 0.9% NaCl 1 MG/10 ML Syringe IVPUSH PRN ×2 (01:25→03:42)
[2024-07-24] MEDS ORDERED: ePHEDrine 50 MG/ML SDV IM PRN ×2 (01:25→03:43)
[2024-07-24] MEDS ORDERED: Bupivacaine 0.5% 10 ML SDV INJECT ONE (01:25)
[2024-07-24] MEDS ORDERED: dexmedeTOMIDine HCl 200 MCG/2 ML SDV EPIDUR SCH ×2 (01:30→03:45)
[2024-07-24] MEDS ORDERED: Ondansetron 4 MG/2 ML SDV ONE (02:17)
[2024-07-24] MEDS ORDERED: fentaNYL 100 MCG/2 ML SDV ONE (02:17)
[2024-07-24] MEDS ORDERED: Ropivacaine 0.5% 5 MG/ML 30 ML SDV ONE (02:17)
[2024-07-24] MEDS ORDERED: ceFAZolin 1 GM Vial ONE (02:17)
[2024-07-24] MEDS ORDERED: Morphine PF 10 MG/10 ML SDV ONE (02:17)
[2024-07-24] MEDS ORDERED: Ketorolac 30 MG/ML SDV ONE (02:17)
[2024-07-24] MEDS ORDERED: Bupivacaine 0.25% 30 ML SDV ONE (02:17)
[2024-07-24] MEDS ORDERED: Oxytocin 10 Units/1 ML SDV ONE (02:17)
[2024-07-24] MEDS ORDERED: EPINEPHrine 1 MG/1 ML Amp ONE (02:17)
[2024-07-24] MEDS: ceFAZolin 2 GM in Sodium Chloride 0.9% 50 ML IV SCH (02:25)
[2024-07-24] MEDS ORDERED: Midazolam 1 MG/ML 2 ML SDV ONE (02:25)
[2024-07-24] MEDS ORDERED: Propofol 200 MG/20 ML SDV ONE (02:32)
[2024-07-24] MEDS: Azithromycin 500 MG in Sodium Chloride 0.9% 250 ML IV STA (02:35)
[2024-07-24] MEDS ORDERED: Azithromycin 500 MG Vial ONE (02:40)
[2024-07-24] MEDS ORDERED: Acetaminophen/oxyCODONE 325-5 MG Tab PO PRN (03:24)
[2024-07-24] MEDS ORDERED: diphenhydrAMINE 50 MG/ML SDV IVPUSH PRN ×2 (03:24→03:42)
[2024-07-24] MEDS ORDERED: Lanolin 100% Cream 7 GM Tube TOP PRN (03:24)
[2024-07-24] MEDS ORDERED: Bisacodyl 10 MG Supp RECTAL PRN (03:24)
[2024-07-24 03:36] LABS: PH,UMBILICAL ARTERIAL 7.008 (7.18-7.38)
[2024-07-24 03:37] LABS: PH,UMBILICAL VENOUS 7.282 (7.25-7.45)
[2024-07-24] MEDS ORDERED: fentaNYL 100 MCG/2 ML SDV IVPUSH PRN (03:42)
[2024-07-24] MEDS ORDERED: Ropivacaine HCl/PF 400 MG in Premix Bag 1 BAG EPIDUR SCH (03:45)
[2024-07-24] MEDS: Ketorolac 30 MG/ML SDV IVPUSH SCH ×2 (04:36→10:25)
[2024-07-24] MEDS: Simethicone 80 MG Tab.Chew PO SCH (06:00)
[2024-07-24] MEDS: Acetaminophen 1,000 MG in Premix Bag 1 BAG IV SCH ×2 (06:00→12:08)
[2024-07-24] MEDS: Ferrous Sulfate 325 MG Tab PO SCH (08:28)
[2024-07-24] MEDS: Prenatal Multivitamin with Calcium/Folic Acid/Iron Tab PO SCH (08:29)
[2024-07-24] MEDS ORDERED: Acetaminophen 1,000 MG in Premix Bag 1 BAG IV SCH (10:00)
[2024-07-24 18:41] LABS: HEMOGLOBIN 9.9 g/dL (12.0-16.0); MEAN CORPUSCULAR HEMOGLOBIN 31.4 pg (28.0-32.0); MEAN CORPUSCULAR HGB CONC 35.4 g/dL (32.0-36.0); MEAN CORPUSCULAR VOLUME 88.9 fL (83.0-99.0); MEAN PLATELET VOLUME 9.9 fL (9.4-12.3); PLATELET COUNT,PLT 157 K/uL (150-400); RED BLOOD CELL COUNT 3.15 M/uL (4.10-5.30); WHITE BLOOD CELL COUNT,WBC 12.84 K/uL (3.9-11.3)
[2024-07-25] MEDS: Docusate Sodium 100 MG Cap PO PRN (08:27)
[2024-07-25] MEDS: Acetaminophen/oxyCODONE 325-5 MG Tab PO PRN (08:27)
[2024-07-25] MEDS ORDERED: Ibuprofen 800 MG Tab PO PRN (09:30)
[2024-07-25] MEDS: Ibuprofen 800 MG Tab PO PRN (13:34)
[2024-07-26] MEDS: Acetaminophen/oxyCODONE 325-5 MG Tab PO PRN (05:14)
[2024-07-26 08:48] VITALS: BP 109/63; PULSE 102
== END 2024-07-26 12:42 | disposition home or self-care (01) | DRG 540 ==
LOC: UNDOADMOB 00:20 → MW.OB 00:20 → INTOOBSV 02:19 → OBSVTOIN 02:19 → MW.OB 11:39
PROVIDERS: ADMIT Obstetrics & Gynecology; ATTEND Obstetrics & Gynecology
PROC: 10D00Z1 Extraction of Products of Conception, Low, Open Approach (ICD-10-PCS; principal; 2024-07-24 02:26)
DX: O42.02 Full-term premature rupture of membranes, onset of labor within 24 hours of rupture (principal); D62 Acute posthemorrhagic anemia; O90.81 Anemia of the puerperium; O69.0XX0 Labor and delivery complicated by prolapse of cord, not applicable or unspecified; O77.8 Labor and delivery complicated by other evidence of fetal stress; Z3A.38 38 weeks gestation of pregnancy; Z37.0 Single live birth; Z98.890 Other specified postprocedural states
CPT/HCPCS: 01967; 01968; 36415; 59025; 59514; 64488; 74018; 74018-26; 82803; 82947; 85027; 86592; 86850; 86900; 86901; A9270-GY; J0131; J0171; J0456; J0665; J0690; J1100; J1885; J2250; J2274; J2371; J2405; J2590; J2704; J2795; J3010; J3490; J7050; J7120